=== PATIENT | female | born 2000 | race Hispanic/Latino ===

== ENCOUNTER → 2023-04-17 07:32 | Outpatient (REF) | payer OTHER, SELFPAY | LOC: RAD 07:32 | PROVIDERS: ATTENDING PHYSICIAN Physician Assistant | DX: R10.11 Right upper quadrant pain (principal) | CPT/HCPCS: 78227; A9537; J2805 ==

== ENCOUNTER → 2023-04-25 07:44 | Outpatient (REF) | payer OTHER, SELFPAY | LOC: RAD 07:44 | PROVIDERS: ATTENDING PHYSICIAN Physician Assistant | DX: R11.0 Nausea (principal) | CPT/HCPCS: 78264; A9541 ==

== ENCOUNTER → 2023-07-05 16:00 | Outpatient (REF) | payer OTHER, SELFPAY ==
[2023-07-08 03:46] LABS: HPV, High Risk Detected; HPV, High Risk Source Cervical
== END ==
LOC: CLINIC 16:00
PROVIDERS: ATTENDING PHYSICIAN Nurse Practitioner Adult Health
DX: R87.610 Atypical squamous cells of undetermined significance on cytologic smear of cervix (ASC-US) (principal)
CPT/HCPCS: 87624